=== PATIENT | male | born 1970 | race African-American/Black ===

== ENCOUNTER 2017-06-16 04:40 | Emergency (ER) | payer MEDICARE, MEDICAID, OTHER ==
[~2017-06-16] VITALS: Ht 177.8 cm; Wt 104.0 kg
[~2017-06-16 04:40] MED LIST: /QUET10TA OR; /QUET25TA OR; ALBUTEROL INH; AMLO10TAB OR; ASPI81TA3 OR; CETI10TA OR; FLON0.05; GLUC1000 OR; LISI40TA OR; NITR0.1D TD; NITR0.4S SL; PRIL20CA OR; REME30TA OR; SERO400T OR; TOPI50TA OR; VITD; ZOLO100T OR; [UNRECOGNIZED DRUG - CODE] OR; hctz; prazosin; seroquel
[2017-06-16] MEDS ORDERED: GLIP2.5T6 PO (05:02)
[2017-06-16 05:44] LABS: BASO # 0.1 10^3/uL (0.0-0.2); BASO % 0.5 % (0.0-1.0); EOS # 0.6 10^3/uL (0.0-0.50); EOS % 6.7 % (0.0-3.0); IMMATURE GRANULOCYTE % 0.2 % (0-0); LYMPH # 3.4 10^3/uL (1.5-4.5); LYMPH % 36.2 % (24.0-44.0); MEAN CORPUSCULAR HEMOGLOBIN 28.9 pg (27.0-33.0); MEAN CORPUSCULAR HGB CONC 33.5 g/dl (32.0-36.5); MEAN CORPUSCULAR VOLUME 86.2 fl (80.0-96.0); MONO # 0.7 10^3/uL (0.0-0.8); MONO % 7.2 % (0.0-5.0); NEUTROPHILS # 4.6 10^3/uL (1.8-7.7); NEUTROPHILS % 49.2 % (36.0-66.0); PLATELET COUNT, AUTOMATED 273 10^3/uL (150-450); RED CELL DISTRIBUTION WIDTH 14.6 % (11.5-14.5); WHITE BLOOD COUNT 9.4 10^3/uL (4.0-10.0)
[2017-06-16] MEDS ORDERED: MECLIZINE 25 MG TABLET PO ONE (05:45)
[2017-06-16] MEDS ORDERED: NS 1,000 ML IV ONE (05:45)
[2017-06-16] MEDS ORDERED: ONDANSETRON 4MG/2ML VIAL (J2405) IV ONE (05:45)
[2017-06-16 06:08] LABS: ALBUMIN 3.8 GM/DL (3.2-5.2); ALBUMIN/GLOBULIN RATIO 0.78 (1.00-1.93); ALKALINE PHOSPHATASE 61 U/L (45-117); ALT/SGPT 52 U/L (12-78); ANION GAP 8 MEQ/L (8-16); AST/SGOT 28 U/L (15-37); BILIRUBIN,DIRECT 0.1 MG/DL (0.0-0.2); BILIRUBIN,TOTAL 0.5 MG/DL (0.2-1.0); BLOOD UREA NITROGEN 14 MG/DL (7-18); CARBON DIOXIDE LEVEL 27 MEQ/L (21-32); CHLORIDE LEVEL 105 MEQ/L (98-107); CREATININE FOR GFR 1.08 MG/DL (0.70-1.30); GLOMERULAR FILTRATION RATE > 60.0 (>60); GLUCOSE, FASTING 96 MG/DL (70-105); POTASSIUM SERUM 3.5 MEQ/L (3.5-5.1); SODIUM LEVEL 140 MEQ/L (136-145); TOTAL PROTEIN 8.7 GM/DL (6.4-8.2)
[2017-06-16 07:08] VITALS: BP 127/81
--- NOTE | 2017-06-17 09:13 | ECGEPIP ---
Stationary ECG Study [facility] - ED Test Date: 2017-06-16 Pat Name: MAJO SALINAS Department: Room: - Gender: M Clay Molder: michael : 1970 Requested By: JAY Gil Order Number: [id number] Reading MD: Melissa Kennedy Measurements Intervals [place] Rate: 57 P: 63 PA: 177 QRS: 48 QRSD: 96 T: 46 QT: 396 QTc: 386 Interpretive Statements SINUS BRADYCARDIA NSTTW ABNORMALITY DECREASED RATE 03/17/12 Electronically Signed On 06-17-2017 9:13:04 EDT by Melissa Kennedy
== END 2017-06-16 07:29 | disposition left against medical advice (07) ==
LOC: M ED 04:40
DX: R10.9 Unspecified abdominal pain (principal); R42 Dizziness and giddiness; J30.2 Other seasonal allergic rhinitis; F17.210 Nicotine dependence, cigarettes, uncomplicated; Z79.84 Long term (current) use of oral hypoglycemic drugs; Z79.899 Other long term (current) drug therapy; Z79.82 Long term (current) use of aspirin; Z88.8 Allergy status to other drugs, medicaments and biological substances; Z91.040 Latex allergy status; Z91.013 Allergy to seafood
CPT/HCPCS: 80048; 80076; 81001; 82550; 82553; 83690; 84484; 85025; 87086; 93005; 93041; 96374; 99285; J2405

== ENCOUNTER 2018-03-13 02:12 | Inpatient (IN) | payer MEDICARE, MEDICAID, OTHER ==
[2018-03-13 03:32] LABS: HEMATOCRIT 46.7 % (42.0-52.0); HEMOGLOBIN 15.9 g/dl (13.5-17.5); MEAN CORPUSCULAR HEMOGLOBIN 29.3 pg (27.0-33.0); MEAN CORPUSCULAR VOLUME 86.2 fl (80.0-96.0); PLATELET COUNT, AUTOMATED 284 10^3/uL (150-450); RED BLOOD COUNT 5.42 10^6/uL (4.30-6.10); RED CELL DISTRIBUTION WIDTH 14.5 % (11.5-14.5); WHITE BLOOD COUNT 10.9 10^3/uL (4.0-10.0)
[2018-03-13 04:04] LABS: AMPHETAMINES LEVEL URINE NEGATIVE (NEGATIVE); BARBITURATES URINE NEGATIVE (NEGATIVE); BENZODIAZEPINES URINE NEGATIVE (NEGATIVE); CANNABINOIDS URINE NEGATIVE (NEGATIVE); COCAINE METABOLITE URINE POSITIVE (NEGATIVE); METHADONE URINE NEGATIVE (NEGATIVE); OPIATES URINE NEGATIVE (NEGATIVE); PHENCYCLIDINE URINE NEGATIVE (NEGATIVE)
[2018-03-13 04:07] LABS: ALBUMIN/GLOBULIN RATIO 0.89 (1.00-1.93); ALKALINE PHOSPHATASE 78 U/L (45-117); ALT/SGPT 59 U/L (12-78); ANION GAP 10 MEQ/L (8-16); AST/SGOT 33 U/L (7-37); BILIRUBIN,DIRECT 0.1 MG/DL (0.0-0.2); BILIRUBIN,TOTAL 0.4 MG/DL (0.2-1.0); BLOOD UREA NITROGEN 10 MG/DL (7-18); CARBON DIOXIDE LEVEL 23 MEQ/L (21-32); CHLORIDE LEVEL 109 MEQ/L (98-107); ETHYL ALCOHOL (ETHANOL) 0.003 % (0.000-0.010); GLOMERULAR FILTRATION RATE > 60.0 (>60); GLUCOSE, FASTING 92 MG/DL (70-100); POTASSIUM SERUM 4.4 MEQ/L (3.5-5.1); SALICYLATE LEVEL 3.5 MG/DL (5.0-30.0); SODIUM LEVEL 142 MEQ/L (136-145); THYROID STIMULATING HORMONE 0.392 uIU/ML (0.358-3.740); TOTAL PROTEIN 8.5 GM/DL (6.4-8.2)
[2018-03-13 04:23] LABS: ACETAMINOPHEN LEVEL < 2.0 UG/ML (10.0-30.0)
[2018-03-13] MEDS ORDERED: ACETAMINOPHEN TAB 650MG DOSE (2X325MG) PO (05:00)
[2018-03-13] MEDS ORDERED: MAALOX 30 ML SUSP *UDC PO (05:00)
[2018-03-13] MEDS ORDERED: traZODone 50 MG TAB PO (05:00)
[2018-03-13] MEDS ORDERED: MOM 30ML SUSPENSION UDC PO (05:00)
[2018-03-13] MEDS: FLUTICASONE PROP 0.05% NASAL SPRAY 16 GM (FLONASE) (09:00)
[2018-03-13] MEDS ORDERED: ALBUTEROL 90 MCG/ACT 8GM HFA INHALER INH (12:00)
[2018-03-13] MEDS: CETIRIZINE (ZyrTEC) 10 MG TAB PO (12:54)
[2018-03-13] MEDS: ASPIRIN 81 MG ENTERIC TAB PO (12:54)
[2018-03-13] MEDS: VITAMIN D 1,000 INTERNATIONAL UNITS TABLET PO (12:55)
[2018-03-13] MEDS: glipiZIDE XL 5 MG TABCR PO ×2 (12:55→21:00)
[2018-03-13] MEDS: hydroCHLOROthiazide 12.5 MG CAPSULE PO (12:55)
[2018-03-13] MEDS: PANTOPRAZOLE 40MG TAB (PROTONIX) PO (12:55)
[2018-03-13] MEDS: metFORMIN (GLUCOPHAGE) 1000 MG TABLET PO (17:11)
[2018-03-13 17:13] LABS: BEDSIDE GLUCOSE 178 MG/DL (70-105)
[2018-03-13] MEDS: MIRTAZAPINE 7.5MG PER 1/2 TABLET PO (21:00)
[2018-03-13] MEDS: PRAZOSIN 1 MG CAP PO (21:00)
[2018-03-13] MEDS: PALIPERIDONE 6 MG ER TAB (INVEGA) PO (21:00)
[2018-03-13] MEDS: LISINOPRIL 40 MG TAB PO (21:00)
[2018-03-14] MEDS: VITAMIN D 1,000 INTERNATIONAL UNITS TABLET PO (08:38)
[2018-03-14] MEDS: FLUTICASONE PROP 0.05% NASAL SPRAY 16 GM (FLONASE) (08:38)
[2018-03-14] MEDS: PANTOPRAZOLE 40MG TAB (PROTONIX) PO (08:39)
[2018-03-14] MEDS: CETIRIZINE (ZyrTEC) 10 MG TAB PO (08:39)
[2018-03-14] MEDS: ASPIRIN 81 MG ENTERIC TAB PO (08:39)
[2018-03-14] MEDS: glipiZIDE XL 5 MG TABCR PO ×2 (08:39→21:00)
[2018-03-14] MEDS: metFORMIN (GLUCOPHAGE) 1000 MG TABLET PO ×2 (08:39→18:07)
[2018-03-14] MEDS: hydroCHLOROthiazide 12.5 MG CAPSULE PO (08:40)
[2018-03-14 11:17] LABS: BEDSIDE GLUCOSE 115 MG/DL (70-105)
[2018-03-14] MEDS: LISINOPRIL 40 MG TAB PO (21:00)
[2018-03-14] MEDS: MIRTAZAPINE 7.5MG PER 1/2 TABLET PO (21:00)
[2018-03-14] MEDS: PRAZOSIN 1 MG CAP PO (21:00)
[2018-03-14] MEDS: PALIPERIDONE 6 MG ER TAB (INVEGA) PO (21:00)
[2018-03-15] MEDS: FLUTICASONE PROP 0.05% NASAL SPRAY 16 GM (FLONASE) (09:00)
[2018-03-15] MEDS: CETIRIZINE (ZyrTEC) 10 MG TAB PO (09:14)
[2018-03-15] MEDS: metFORMIN (GLUCOPHAGE) 1000 MG TABLET PO ×2 (09:14→17:13)
[2018-03-15] MEDS: ASPIRIN 81 MG ENTERIC TAB PO (09:14)
[2018-03-15] MEDS: PANTOPRAZOLE 40MG TAB (PROTONIX) PO (09:14)
[2018-03-15] MEDS: hydroCHLOROthiazide 12.5 MG CAPSULE PO (09:15)
[2018-03-15] MEDS: VITAMIN D 1,000 INTERNATIONAL UNITS TABLET PO (09:15)
[2018-03-15] MEDS: glipiZIDE XL 5 MG TABCR PO ×2 (09:15→21:56)
[2018-03-15 16:47] LABS: BEDSIDE GLUCOSE 119 MG/DL (70-105)
[2018-03-15] MEDS: LISINOPRIL 40 MG TAB PO (21:56)
[2018-03-15] MEDS: PALIPERIDONE 6 MG ER TAB (INVEGA) PO (21:57)
[2018-03-15] MEDS: MIRTAZAPINE 7.5MG PER 1/2 TABLET PO (21:57)
[2018-03-15] MEDS: PRAZOSIN 1 MG CAP PO (21:58)
[2018-03-16] MEDS: metFORMIN (GLUCOPHAGE) 1000 MG TABLET PO (11:21)
[2018-03-16] MEDS: PANTOPRAZOLE 40MG TAB (PROTONIX) PO (11:34)
[2018-03-16] MEDS: CETIRIZINE (ZyrTEC) 10 MG TAB PO (11:34)
[2018-03-16] MEDS: ASPIRIN 81 MG ENTERIC TAB PO (11:34)
[2018-03-16] MEDS: glipiZIDE XL 5 MG TABCR PO (11:35)
[2018-03-16] MEDS: hydroCHLOROthiazide 12.5 MG CAPSULE PO (11:35)
[2018-03-16] MEDS: VITAMIN D 1,000 INTERNATIONAL UNITS TABLET PO (11:36)
[2018-03-16] MEDS: FLUTICASONE PROP 0.05% NASAL SPRAY 16 GM (FLONASE) (11:37)
[2018-03-16] MEDS: OLANZapine 5 MG TAB PO (14:05)
== END 2018-03-16 15:10 | disposition home or self-care (01) | DRG 885 ==
LOC: M ED 02:12 → M ED INP 04:47 → M PSY 08:34
PROVIDERS: Psychiatry & Neurology Psychiatry
DX: F25.9 Schizoaffective disorder, unspecified (principal); R45.851 Suicidal ideations; F43.10 Post-traumatic stress disorder, unspecified; I10 Essential (primary) hypertension; J30.9 Allergic rhinitis, unspecified; K21.9 Gastro-esophageal reflux disease without esophagitis; E11.9 Type 2 diabetes mellitus without complications; F17.200 Nicotine dependence, unspecified, uncomplicated; J44.9 Chronic obstructive pulmonary disease, unspecified; Z79.82 Long term (current) use of aspirin; Z79.84 Long term (current) use of oral hypoglycemic drugs; Z79.899 Other long term (current) drug therapy; Z91.040 Latex allergy status; Z91.013 Allergy to seafood; Z91.048 Other nonmedicinal substance allergy status; Z91.5 Personal history of self-harm

== ENCOUNTER → 2018-07-30 | Outpatient (REF) | payer MEDICARE, MEDICAID ==
[2018-07-30 16:36] LABS: BASO # 0.1 10^3/uL (0.0-0.2); BASO % 0.6 % (0.0-1.0); EOS # 0.5 10^3/uL (0.0-0.50); EOS % 5.7 % (0.0-3.0); HEMATOCRIT 48.7 % (42.0-52.0); HEMOGLOBIN 15.9 g/dl (13.5-17.5); IMMATURE GRANULOCYTE % 0.2 % (0-3.0); LYMPH # 4.1 10^3/uL (1.5-4.5); LYMPH % 43.6 % (24.0-44.0); MEAN CORPUSCULAR HEMOGLOBIN 29.1 pg (27.0-33.0); MEAN CORPUSCULAR HGB CONC 32.6 g/dl (32.0-36.5); MEAN CORPUSCULAR VOLUME 89.2 fl (80.0-96.0); MONO # 0.7 10^3/uL (0.0-0.8); MONO % 7.2 % (0.0-5.0); NEUTROPHILS % 42.7 % (36.0-66.0); PLATELET COUNT, AUTOMATED 269 10^3/uL (150-450); RED BLOOD COUNT 5.46 10^6/uL (4.30-6.10); RED CELL DISTRIBUTION WIDTH 14.6 % (11.5-14.5); WHITE BLOOD COUNT 9.3 10^3/uL (4.0-10.0)
[2018-07-30 17:14] LABS: ANION GAP 10 MEQ/L (8-16); BLOOD UREA NITROGEN 15 MG/DL (7-18); CARBON DIOXIDE LEVEL 27 MEQ/L (21-32); CHLORIDE LEVEL 102 MEQ/L (98-107); CHOLESTEROL LEVEL 139 MG/DL (<200); CHOLESTEROL RISK RATIO 3.756 (<5); CREATININE FOR GFR 1.03 MG/DL (0.70-1.30); GLOMERULAR FILTRATION RATE > 60.0 (>56); GLUCOSE, FASTING 103 MG/DL (70-100); HDL CHOLESTEROL 37 MG/DL (>40); LDL CHOLESTEROL 83 MG/DL (<100); NON-HDL-C 102 MG/DL; POTASSIUM SERUM 4.5 MEQ/L (3.5-5.1); SODIUM LEVEL 139 MEQ/L (136-145); TRIGLYCERIDES LEVEL 97 MG/DL (<150)
[2018-07-30 18:43] LABS: ESTIMATED AVERAGE GLUCOSE 174 MG/DL (60-110); HEMOGLOBIN A1c 7.7 %
[2018-07-30 19:41] LABS: MAU/CREAT RATIO 243.6 MCG/MG (0.0-30.0)
== END ==
LOC: M SFHCPLAZ 14:55
DX: F25.9 Schizoaffective disorder, unspecified (principal); E11.9 Type 2 diabetes mellitus without complications
CPT/HCPCS: 83036

== ENCOUNTER → 2022-07-10 | Outpatient (REF) | payer MEDICARE, MEDICAID ==
[~2022-07-10] MED LIST changes: -/QUET10TA OR; -/QUET25TA OR; -AMLO10TAB OR; +AMLO10TAB PO; -ASPI81TA3 OR; +ASPI81TA3 PO; -CETI10TA OR; +CETI10TA PO; +DILT1CAP6 PO; +GLIP2.5T6 PO; -GLUC1000 OR; +GLUC1000 PO; +HYDR12.55 PO; -LISI40TA OR; +LISI40TA PO; +MIRT15TA3 PO; +PALI1TAB3 PO; +PANT40TA29 PO; +PATIENT COMMENTS; +PAXI30TA11 PO; +PRAZ5CAP PO; -PRIL20CA OR; +PRIL20CA PO; -REME30TA OR; +REME30TA PO; +SERO1TAB OR; +SERO1TAB3 OR; -TOPI50TA OR; +TOPI50TA PO; +TRAZ-252 PO; +VENTAER INH; +VITA2000 PO; +ZIPR40CA11 PO; +ZIPR60CA11 PO; -[UNRECOGNIZED DRUG - CODE] OR; +[UNRECOGNIZED DRUG - CODE] PO
== END ==
LOC: M LAB REF 16:02
PROVIDERS: ATTEND Physician Assistant
DX: R05.9 Cough, unspecified (principal)

== ENCOUNTER 2023-11-11 11:16 | Emergency (ER) | payer OTHER, MEDICAID ==
[~2023-11-11] VITALS: Ht 175.3 cm; Wt 101.4 kg
[~2023-11-11 11:16] MED LIST changes: -DILT1CAP6 PO; +DILT240C42 PO; -PAXI30TA11 PO; +PAXI30TA12 PO
[2023-11-11 12:02] LABS: BASO % 0.4 % (0.0-1.0); EOS # 0.1 10^3/uL (0.0-0.5); EOS % 1.5 % (0.0-3.0); HEMATOCRIT 41.5 % (42.0-52.0); HEMOGLOBIN 14.3 g/dl (13.5-17.5); LYMPH # 2.5 10^3/uL (1.5-5.0); LYMPH % 27.9 % (24.0-44.0); MEAN CORPUSCULAR HEMOGLOBIN 30.8 pg (27.0-33.0); MEAN CORPUSCULAR HGB CONC 34.5 g/dl (32.0-36.5); MEAN CORPUSCULAR VOLUME 89.2 fl (80.0-96.0); MONO # 0.6 10^3/uL (0.0-0.8); MONO % 6.6 % (2.0-8.0); NEUTROPHILS # 5.7 10^3/uL (1.5-8.5); NEUTROPHILS % 63.4 % (36.0-66.0); PLATELET COUNT, AUTOMATED 226 10^3/uL (150-450); RED BLOOD COUNT 4.65 10^6/uL (4.30-6.10); WHITE BLOOD COUNT 8.9 10^3/uL (4.0-10.0)
[2023-11-11 12:35] LABS: CK-MB VALUE MASS < 1.0 NG/ML (<3.6)
[2023-11-11 12:36] LABS: BLOOD UREA NITROGEN 10 MG/DL (9-23); CALCIUM LEVEL 8.9 MG/DL (8.5-10.1); CARBON DIOXIDE LEVEL 27 MMOL/L (20-31); CHLORIDE LEVEL 103 MMOL/L (98-107); CPK CREATINE PHOSPHOKINASE 93 U/L (46-171); CREATININE FOR GFR 0.63 MG/DL (0.70-1.30); GLOMERULAR FILTRATION RATE > 60.0 (>56); GLUCOSE, FASTING 261 MG/DL (60-100); MB/CK RELATIVE INDEX 1.07 (< OR =4); POTASSIUM SERUM 3.8 MMOL/L (3.5-5.1); SODIUM LEVEL 134 MMOL/L (136-145)
[2023-11-11 13:40] LABS: CK-MB VALUE MASS < 1.0 NG/ML (<3.6)
[2023-11-11 13:42] LABS: CPK CREATINE PHOSPHOKINASE 90 U/L (46-171); MB/CK RELATIVE INDEX 1.11 (< OR =4)
[2023-11-11 14:15] VITALS: O2SAT 96
[2023-11-11 14:30] VITALS: BP 146/96
[2023-11-11] MEDS ORDERED: QUET100T2 PO ×2 (14:33→14:44)
[2023-11-11] MEDS ORDERED: GLIP5TAB17 PO (14:33)
[2023-11-11] MEDS ORDERED: DILT300C21 PO (14:33)
[2023-11-11] MEDS ORDERED: PRAZ2CAP PO (14:33)
[2023-11-11] MEDS ORDERED: D 1010002 PO (14:33)
[2023-11-11] MEDS ORDERED: METF-877 PO (14:33)
[2023-11-11] MEDS ORDERED: NITR0.4S14 SL (14:33)
[2023-11-11] MEDS ORDERED: LISI40TA4 PO (14:33)
[2023-11-11] MEDS ORDERED: OMEGCAP4 PO (14:33)
[2023-11-11] MEDS ORDERED: FLUTISP (14:33)
[2023-11-11] MEDS ORDERED: FAMO20TA PO (14:33)
[2023-11-11] MEDS ORDERED: CHLO125TA PO (14:33)
[2023-11-11] MEDS ORDERED: NESI12.5 PO (14:33)
[2023-11-11] MEDS ORDERED: PRAV40TA2 PO (14:33)
[2023-11-11] MEDS ORDERED: CETI-24 PO (14:33)
[2023-11-11] MEDS ORDERED: ASPI81TA26 PO (14:33)
[2023-11-11] MEDS ORDERED: HOME MED LIST COMPLETE! XX SCH (14:45)
[2023-11-11] MEDS ORDERED: HOLTER MONITOR XX (15:00)
[2023-11-11 15:14] VITALS: TEMP 97.7
== END 2023-11-11 15:21 | disposition home or self-care (01) ==
LOC: M ED 11:16
DX: R55 Syncope and collapse (principal); V89.9XXA Person injured in unspecified vehicle accident, initial encounter; E11.9 Type 2 diabetes mellitus without complications; I10 Essential (primary) hypertension; E78.5 Hyperlipidemia, unspecified; F43.10 Post-traumatic stress disorder, unspecified; Z91.013 Allergy to seafood; Z91.040 Latex allergy status; Z88.8 Allergy status to other drugs, medicaments and biological substances; Z79.51 Long term (current) use of inhaled steroids; Z79.899 Other long term (current) drug therapy; Z79.84 Long term (current) use of oral hypoglycemic drugs

== ENCOUNTER 2025-01-21 00:55 | Emergency (ER) | payer MEDICARE, MEDICAID ==
[~2025-01-21] VITALS: Ht 175.3 cm; Wt 99.7 kg
[~2025-01-21 00:55] MED LIST changes: +ASPI81TA26 PO; +CETI-24 PO; +CHLO125TA PO; +D 1010002 PO; +DILT300C21 PO; +FAMO20TA PO; +FLUTISP; +GLIP2.5T46 PO; -GLIP2.5T6 PO; +GLIP5TAB17 PO; +HOLTER MONITOR XX; +LISI40TA10 PO; +METF-877 PO; +NESI12.5 PO; +NITR0.4S14 SL; +OMEGCAP4 PO; +PRAV40TA85 PO; +PRAZ2CAP PO; +QUET100T2 PO; -ZIPR40CA11 PO; +ZIPR40CA21 PO; -ZIPR60CA11 PO; +ZIPR60CA21 PO
[2025-01-21 01:01] VITALS: TEMP 98
[2025-01-21 01:38] LABS: BASO # 0.1 10^3/uL (0.0-0.2); BASO % 0.8 % (0.0-1.0); EOS # 0.3 10^3/uL (0.0-0.5); EOS % 3.6 % (0.0-3.0); HEMATOCRIT 43.1 % (42.0-52.0); HEMOGLOBIN 14.8 g/dl (13.5-17.5); LYMPH # 4.8 10^3/uL (1.5-5.0); LYMPH % 53.1 % (24.0-44.0); MEAN CORPUSCULAR HEMOGLOBIN 31.4 pg (27.0-33.0); MEAN CORPUSCULAR HGB CONC 34.3 g/dl (32.0-36.5); MEAN CORPUSCULAR VOLUME 91.5 fl (80.0-96.0); MONO # 0.6 10^3/uL (0.0-0.8); MONO % 6.2 % (2.0-8.0); NEUTROPHILS # 3.3 10^3/uL (1.5-8.5); PLATELET COUNT, AUTOMATED 224 10^3/uL (150-450); RED BLOOD COUNT 4.71 10^6/uL (4.30-6.10); WHITE BLOOD COUNT 9.1 10^3/uL (4.0-10.0)
[2025-01-21 01:48] LABS: INR 1.02; PROTHROMBIN TIME 13.7 SECONDS (12.5-14.5)
[2025-01-21 02:02] LABS: ALBUMIN 3.4 G/DL (3.2-5.2); ALKALINE PHOSPHATASE 78 U/L (40-129); ALT/SGPT 65 U/L (7.0-40); AST/SGOT 52 U/L (<34); BILIRUBIN,TOTAL 0.3 MG/DL (0.3-1.2); BLOOD UREA NITROGEN 9 MG/DL (9-23); CARBON DIOXIDE LEVEL 28 MMOL/L (20-31); CHLORIDE LEVEL 105 MMOL/L (98-107); CREATININE FOR GFR 0.72 MG/DL (0.70-1.30); GLOMERULAR FILTRATION RATE > 90.0 (>56); GLUCOSE, FASTING 129 MG/DL (60-100); POTASSIUM SERUM 4.2 MMOL/L (3.5-5.1); SODIUM LEVEL 138 MMOL/L (136-145); TOTAL PROTEIN 7.5 G/DL (5.7-8.2)
[2025-01-21 02:10] VITALS: O2SAT 99
[2025-01-21 02:15] VITALS: BP 162/104
== END 2025-01-21 03:16 | disposition left against medical advice (07) ==
LOC: M ED 00:55
DX: K64.8 Other hemorrhoids (principal); I45.10 Unspecified right bundle-branch block; R00.1 Bradycardia, unspecified; E11.9 Type 2 diabetes mellitus without complications; K21.9 Gastro-esophageal reflux disease without esophagitis; I10 Essential (primary) hypertension; J45.909 Unspecified asthma, uncomplicated; G47.33 Obstructive sleep apnea (adult) (pediatric); F20.9 Schizophrenia, unspecified; F10.10 Alcohol abuse, uncomplicated; Z53.9 Procedure and treatment not carried out, unspecified reason; Z91.040 Latex allergy status; Z91.030 Bee allergy status; Z79.51 Long term (current) use of inhaled steroids; Z79.84 Long term (current) use of oral hypoglycemic drugs; Z79.899 Other long term (current) drug therapy